=== PATIENT | male | born 1995 | race Caucasian/White ===

== ENCOUNTER 2016-12-05 16:49 | Emergency (ER) | payer OTHER ==
[2016-12-05 17:17] VITALS: BP 143/64
--- NOTE | 2016-12-05 17:40 | UC ---
Abdominal Pain Male HPI - HPI Summary HPI Summary: had acid reflux years ago rx with a med (unsure which one) past 7 days has had return of symptoms taking TUMS q 4 hours with relief, - History of Current Complaint Chief Complaint: UCGI Stated Complaint: ABDOMINAL PAIN Time Seen by Provider: 12/05/16 17:20 Hx Obtained From: Patient Onset/Duration: Sudden Onset, Lasting Days - 7, Still Present Timing: Constant Severity Initially: Moderate Severity Currently: Moderate Pain Intensity: 7 Pain Scale Used: 0-10 Numeric Location: Epigastric Radiates: No Character: Burning Aggravating Factor(s):: Nothing Alleviating Factor(s): Meds - TUMS Associated Signs And Symptoms: Negative: Blood in Stool, Decreased Appetite, Nausea, Vomiting, Diarrhea - Allergies/Home Medications Allergies/Adverse Reactions: Allergies Allergy/AdvReac Type Severity Reaction Status Date / Time No Known Allergies Allergy Verified 12/05/16 17:17 Home Medications: Home Medications Calcium Carbonate CHEW TAB* [Tums*] 12/05/16 [History] Omeprazole CAP* [Prilosec CAP* 20 MG] 12/05/16 [History] PMH/Surg Hx/FS Hx/Imm Hx Previously Healthy: Yes - Surgical History Surgical History: None - Family History Known Family History: Positive: None Family History: denies cardio vascular disorders in family lineage - Social History Occupation: Employed Full-time - [employer] Lives: With Family Alcohol Use: Occasionally Substance Use Type: None Smoking Status (MU): Never Smoked Tobacco Type: Smokeless Tobacco Amount Used/How Often: 1 tin every 3 days Review of Systems Constitutional: Negative Skin: Negative Eyes: Negative ENT: Negative Respiratory: Negative Cardiovascular: Negative Gastrointestinal: Abdominal Pain - epigastric burning Genitourinary: Negative Motor: Negative Neurovascular: Negative Musculoskeletal: Negative Neurological: Negative Psychological: Negative All Other Systems Reviewed And Are Negative: Yes Physical Exam Triage Information Reviewed: Yes Appearance: Well-Appearing, No Pain Distress, Well-Nourished Vital Signs: Initial Vital Signs Temp 98.2 F 12/05/16 17:14 Pulse 66 12/05/16 17:14 Resp 18 12/05/16 17:14 BP 143/64 12/05/16 17:14 Pulse Ox 98 12/05/16 17:14 Vital Signs Reviewed: Yes Eye Exam: Normal Eyes: Positive: Conjunctiva Clear ENT Exam: Normal ENT: Positive: Normal ENT inspection, Hearing grossly normal, Pharynx normal, TMs normal. Negative: Nasal congestion, Nasal drainage, Tonsillar swelling, Tonsillar exudate, Trismus, Muffled/hoarse voice Dental Exam: Normal Neck exam: Normal Neck: Positive: Supple, Nontender, No Lymphadenopathy Respiratory Exam: Normal Respiratory: Positive: Chest non-tender, Lungs clear, Normal breath sounds, No respiratory distress, No accessory muscle use Cardiovascular Exam: Normal Cardiovascular: Positive: RRR, No Murmur, Pulses Normal, Brisk Capillary Refill Abdominal Exam: Other Abdomen Description: Positive: No Organomegaly, Soft, Other: - epigastric tenderness. Negative: Bruit, CVA Tenderness (R), CVA Tenderness (L), Distended , Guarding Bowel Sounds: Positive: Present Musculoskeletal Exam: Normal Musculoskeletal: Positive: Strength Intact, ROM Intact, No Edema Neurological Exam: Normal Neurological: Positive: Alert, Muscle Tone Normal Psychological Exam: Normal Skin Exam: Normal Diagnostics - EKG Cardiac Rate: NL Cardiac Rhythm: Sinus: Normal Ectopy: None ST Segment: Normal Abd Pain Male Course/Dx - Course Course Of Treatment: prilosec, Diet MOdification for gastritis, follow with primary clinician - Differential Dx/Clinical Impression Differential Diagnosis/HQI/PQRI: Gall Bladder Disease, Peptic Ulcer Disease, Other - gerd Provider Diagnoses: Gerd Discharge - Discharge Plan Condition: Stable Disposition: HOME Prescriptions: Omeprazole [Prilosec] 40 mg PO DAILY #30 cap Patient Education Materials: Diet for Ulcers and Gastritis (ED), Gastroesophageal Reflux Disease (ED) Referrals: Natalia Jordan NP [Primary Care Provider] - 2 Weeks
== END 2016-12-05 17:53 | disposition home or self-care (01) ==
LOC: UCEAST 16:49
DX: K21.9 Gastro-esophageal reflux disease without esophagitis (principal); F17.220 Nicotine dependence, chewing tobacco, uncomplicated
CPT/HCPCS: 93005; 99212; G0463

== ENCOUNTER 2017-06-06 18:00 | Emergency (ER) | payer OTHER ==
[2017-06-06] MEDS ORDERED: Lidocaine 2% PF * 5 ML VIAL INJ ONE (19:27)
--- NOTE | 2017-06-06 19:34 | RAD ---
Indication: Left index finger injury 3 views of left index finger demonstrates no fracture. Soft tissue defect and calcifications are noted on the dorsal aspect overlying the proximal phalanx of the index finger. IMPRESSION: No fracture is identified. Soft tissue calcifications are noted superficial to the dorsal aspect of the proximal phalanx of the index finger.
--- NOTE | 2017-06-06 20:07 | UC ---
Progress - Progress Note Progress Note: LACERATION REPAIR OF 2X LACERATIONS TO LEFT SECOND FINGER. DIGITAL BLOCK LEFT SECOND FINGER WITH 2% LIDOCAINE. LACERATION 1) 2CM 5mm X 5mm = 4X 4-0 PROLENE LACERATION 2) 1cm 5mm X 4mm = 3 X 4-0 PROLENE
[2017-06-06 20:12] VITALS: BP 119/68
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
== END 2017-06-06 20:17 | disposition home or self-care (01) ==
LOC: UCEAST 18:00
DX: S61.211A Laceration without foreign body of left index finger without damage to nail, initial encounter (principal); W31.89XA Contact with other specified machinery, initial encounter; Y93.89 Activity, other specified; Y92.9 Unspecified place or not applicable; F17.220 Nicotine dependence, chewing tobacco, uncomplicated
CPT/HCPCS: 12002; 73140; 99212; G0463

== ENCOUNTER 2017-06-19 17:47 | Emergency (ER) | payer OTHER ==
[2017-06-19 17:55] VITALS: BP 114/66
--- NOTE | 2017-06-19 18:15 | UC ---
HPI Wound/Suture Re-check - HPI Summary HPI Summary: Patient present to have the stitches removed form his left index finger. He reports the stitches are dry, intact, without any bleeding, pain or drainage. He denies any numbness or tingling of the finger. - History Of Current Complaint Chief Complaint: UCGeneralIllness Stated Complaint: SUTURE REMOVAL Time Seen by Provider: 06/19/17 17:54 Hx Obtained From: Patient - Allergies/Home Medications Allergies/Adverse Reactions: Allergies Allergy/AdvReac Type Severity Reaction Status Date / Time No Known Allergies Allergy Verified 06/19/17 17:52 PMH/Surg Hx/FS Hx/Imm Hx Previously Healthy: Yes - Surgical History Surgical History: None - Family History Known Family History: Positive: None Negative: Cardiac Disease Family History: denies cardio vascular disorders in family lineage - Social History Occupation: Employed Full-time Lives: Alone Alcohol Use: Occasionally Substance Use Type: None Smoking Status (MU): Never Smoked Tobacco Type: Smokeless Tobacco Amount Used/How Often: 1 tin every 3 days - Immunization History Most Recent Tetanus Shot: 2014 Review of Systems Constitutional: Negative Skin: Other - stitch removal All Other Systems Reviewed And Are Negative: Yes Physical Exam Triage Information Reviewed: Yes Appearance: Well-Appearing Vital Signs: Initial Vital Signs Temp 97.8 F 06/19/17 17:52 Pulse 78 06/19/17 17:52 Resp 16 06/19/17 17:52 BP 114/66 06/19/17 17:52 Pulse Ox 100 06/19/17 17:52 Vital Signs Reviewed: Yes ENT Exam: Normal Neck exam: Normal Respiratory Exam: Normal Skin Exam: Other - well healed lacerations x 2 of the right index finger. stitches are dry and intact. well approximated. no surrounding induration noted. rom intact. neruo no dificits noted. Course/Dx - Course Course Of Treatment: Patient presents to have the stitches removed from the right index finger. 7 sutures were removed without incidence. A steri-strip was placed over the distal lacertion for additional support. Continued wound care was discussed. Patient was discharged in stable condiiton. - Differential Dx - Laceration/Wound Differential Diagnoses: Suture Removal Provider Diagnoses: suture removal Discharge - Discharge Plan Condition: Stable Disposition: HOME Patient Education Materials: Stitches Removal (ED) Referrals: Natalia Jordan NP [Primary Care Provider] - Images Hands: 1 - laceation healed 2 - laceration healed
== END 2017-06-19 18:10 | disposition home or self-care (01) ==
LOC: UCEAST 17:47
DX: S61.210D Laceration without foreign body of right index finger without damage to nail, subsequent encounter (principal); W45.8XXD Other foreign body or object entering through skin, subsequent encounter; Y92.9 Unspecified place or not applicable
CPT/HCPCS: 99211; G0463